=== PATIENT | male | born 1995 | race Caucasian/White ===

== ENCOUNTER 2018-06-15 21:20 | Observation (INO) | payer MEDICAID, OTHER ==
[2018-06-15] MEDS ORDERED: Sodium Chloride 0.9% 2.5 ML Syringe FLUSH PRN (21:28)
[2018-06-15] MEDS ORDERED: Sodium Chloride 0.9% 10 ML Syringe FLUSH PRN (21:28)
[2018-06-15] MEDS ORDERED: Ondansetron 4 MG/2 ML SDV IVPUSH ONE (21:28)
[2018-06-15] MEDS ORDERED: Sodium Chloride 0.9% 1,000 ML IV ONE (21:28)
[2018-06-15] MEDS ORDERED: HYDROmorphone 1 MG/ML Syringe IVPUSH ONE ×2 (21:28→21:59)
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
[2018-06-15] MEDS: Dextrose 5%-0.45% NaCl 1,000 ML IV SCH (22:40)
[2018-06-15] MEDS ORDERED: Morphine 2 MG/ML Syringe IVPUSH SCH (23:45)
[2018-06-16] MEDS ORDERED: Ondansetron 4 MG/2 ML SDV IVPUSH PRN
[2018-06-16] MEDS ORDERED: Morphine 2 MG/ML Syringe IVPUSH PRN (00:02)
[2018-06-16] MEDS ORDERED: Morphine 10 MG/ML Syringe IVPUSH PRN (00:30)
[2018-06-16] MEDS: Morphine 10 MG/ML Syringe IVPUSH PRN ×6 (00:36→20:19)
[2018-06-16] MEDS: Acetaminophen/HYDROcodone 325-5 MG Tab PO PRN ×2 (01:22→08:40)
[2018-06-16] MEDS: Dextrose 5%-0.45% NaCl 1,000 ML IV SCH ×2 (04:43→11:31)
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
--- NOTE | 2018-06-16 12:41 | PCM.PREANE ---
Preanesthetic Assessment - Anesthesia/Transfusion/Family Hx Anesthesia History: No Prior Anesthesia Family History of Anesthesia Reaction: No Transfusion History: No Prior Transfusion(s) Intubation History: Unknown - Review of Systems General: No Symptoms Pulmonary: No Symptoms Cardiovascular: No Symptoms Gastrointestinal: No Symptoms Neurological: No Symptoms Other: Reports: None - Physical Assessment O2 Sat by Pulse Oximetry: 95 Respiratory Rate: 12 Vital Signs: Last Vital Signs Temp 37.2 C 06/16/18 11:52 Pulse 109 H 06/16/18 11:52 Resp 12 06/16/18 11:52 BP 134/75 06/16/18 11:52 Pulse Ox 95 06/16/18 11:52 Height: 1.78 m Weight: 135.5 kg ASA Class: 2 Mental Status: Alert & Oriented x3 Airway Class: Mallampati = 2 Dentition: Reports: Normal Dentition Thyro-Mental Finger Breadths: 3 Mouth Opening Finger Breadths: 2 ROM/Head Extension: Full Lungs: Clear to Auscultation, Normal Respiratory Effort Cardiovascular: Regular Rate, Regular Rhythm - Allergies Allergies/Adverse Reactions: Allergies Allergy/AdvReac Type Severity Reaction Status Date / Time No Known Allergies Allergy Verified 06/15/18 21:30 - Blood Blood Available: No - Anesthesia Plan Pre-Op Medication Ordered: None - Acknowledgements Anesthesia Type Planned: General Anesthesia Pt an Appropriate Candidate for the Planned Anesthesia: Yes Alternatives and Risks of Anesthesia Discussed w Pt/Guardian: Yes Pt/Guardian Understands and Agrees with Anesthesia Plan: Yes PreAnesthesia Questionnaire - Past Health History Medical/Surgical History: Denies Medical/Surgical History HEENT History: Reports: None Cardiovascular History: Reports: None Respiratory History: Reports: None Gastrointestinal History: Reports: None Genitourinary History: Reports: None Musculoskeletal History: Reports: Other (See Below) (ankle fx) Neurological History: Reports: None Psychiatric History: Reports: None Endocrine/Metabolic History: Reports: Obesity/BMI 30+ Dermatologic History: Reports: None - Infectious Disease History Infectious Disease History: Reports: None - Past Surgical History HEENT Surgical History: Reports: Tonsillectomy Male Surgical History: Reports: None - SUBSTANCE USE Smoking Status *Q: Never Smoker Second Hand Smoke Exposure: No Recreational Drug Use History: No - HOME MEDS Home Medications: Home Meds . [No Known Home Meds] 06/15/18 [History] - CURRENT (IN HOUSE) MEDS Current Meds: Current Medications Hydrocodone Bitart/Acetaminophen ([place] 325-5 Mg) 2 tab PO Q4H PRN PRN Reason: Pain Last Admin: 06/16/18 08:40 Dose: 2 tab Dextrose/Sodium Chloride (Dextrose 5%-1/2 Ns) 1,000 mls @ 150 mls/hr IV ASDIRECTED VIVIANA Last Admin: 06/16/18 11:31 Dose: 150 mls/hr Cefazolin Sodium/Dextrose 2 gm (/ Premix) 50 mls @ 100 mls/hr IV ONETIME ONE Stop: 06/16/18 15:29 Morphine Sulfate (Morphine) 1 - 5 mg IVPUSH Q2H PRN PRN Reason: Pain Last Admin: 06/16/18 07:46 Dose: 2 mg Ondansetron HCl (Zofran) 4 mg IVPUSH Q6H PRN PRN Reason: Nausea/Vomiting Sodium Chloride (Saline Flush) 10 ml FLUSH ASDIRECTED PRN PRN Reason: Keep Vein Open Last Admin: 06/15/18 21:41 Dose: 10 ml Sodium Chloride (Saline Flush) 2.5 ml FLUSH ASDIRECTED PRN PRN Reason: Keep Vein Open Last Admin: 06/15/18 21:41 Dose: 2.5 ml Discontinued Medications Hydromorphone HCl (Dilaudid) 1 mg IVPUSH ONETIME ONE Stop: 06/15/18 21:29 Last Admin: 06/15/18 21:40 Dose: 1 mg Hydromorphone HCl (Dilaudid) 1 mg IVPUSH ONETIME ONE Stop: 06/15/18 22:00 Last Admin: 06/15/18 22:15 Dose: 1 mg Sodium Chloride (Normal Saline) 1,000 mls @ 999 mls/hr IV STAT ONE Stop: 06/15/18 22:28 Last Admin: 06/15/18 21:41 Dose: 999 mls/hr Morphine Sulfate (Morphine) 1 mg IVPUSH Q2H [facility] Last Admin: 06/16/18 01:17 Dose: Not Given Morphine Sulfate (Morphine) 1 mg IVPUSH Q2H PRN PRN Reason: Pain Morphine Sulfate (Morphine) 1 - 5 mg IVPUSH Q2H PRN PRN Reason: Pain Ondansetron HCl (Zofran) 4 mg IVPUSH ONETIME ONE Stop: 06/15/18 21:29 Last Admin: 06/15/18 21:41 Dose: 4 mg
--- NOTE | 2018-06-16 13:30 | CR ---
EXAM DATE: 06/16/18 PATIENT'S AGE: 22 Patient: MALCOLM DOS SANTOS Facility: [place], [place] Site . Site : 1995 Study: XRay Extremity Left Tib/Fib [id number]/13/2018 9:47:08 PM Ordering Physician: Donna Meier Final Report: INDICATION: Increasing pain. TECHNIQUE: Two views of tibia and fibula COMPARISON: None FINDINGS: Bones: Displaced fractures involving me grade 2 distal tibia and fibula. Joint spaces: Unremarkable. Soft tissues: Unremarkable. IMPRESSION: Displaced fractures involving the mid to distal tibia and fibula. Dictated by Abelardo Patrick MD @ 06/15/2018 9:56:26 PM Dictated by: Abelardo Patrick MD @ 06/15/2018 21:56:32 (Electronic Signature) MTDD
[2018-06-16] MEDS ORDERED: ceFAZolin 2 GM in Premix Bag 1 BAG IV ONE (15:00)
[2018-06-16] MEDS ORDERED: Propofol 200 MG/20 ML SDV ONE (15:14)
[2018-06-16] MEDS ORDERED: fentaNYL 250 MCG/5 ML SDV ONE (15:14)
[2018-06-16] MEDS ORDERED: Midazolam 1 MG/ML 2 ML SDV ONE (15:14)
[2018-06-16] MEDS ORDERED: Bupivacaine 0.5% 10 ML SDV ONE (15:38)
[2018-06-16] MEDS ORDERED: Lidocaine 2% 5 ML SDV ONE (16:15)
[2018-06-16] MEDS ORDERED: Ketorolac 30 MG/ML SDV ONE (16:15)
[2018-06-16] MEDS ORDERED: Ondansetron 4 MG/2 ML SDV ONE (16:15)
[2018-06-16] MEDS ORDERED: Glycopyrrolate 0.2 MG/ML SDV ONE (16:15)
[2018-06-16] MEDS ORDERED: Rocuronium 10 MG/ML 10 ML Syringe ONE (16:15)
[2018-06-16] MEDS ORDERED: Sodium Chloride 0.9% 20 ML ONE (17:16)
[2018-06-16] MEDS ORDERED: ceFAZolin 1 GM Vial ONE (17:16)
--- NOTE | 2018-06-16 18:42 | PCM.OPNOTE ---
- General Post-Op/Procedure Note Date of Surgery/Procedure: 06/16/18 Operative Procedure(s): closed reduction intramedullary nailing left tibia Findings: tibia/fibula fracture Pre Op Diagnosis: left tibia and fibula shaft fx Post-Op Diagnosis: same Anesthesia Technique: General LMA Primary Surgeon: Surjit Clifton Mai Geophysical Manager: Gifty Lopez EBEric in mLs: 20 Complications: none Condition: Stable Free Text/Narrative:: Intake & Output 06/16/18 06/16/18 06/16/18 06:59 14:59 22:59 Intake Total 0919 745 Output Total 400 6205 Balance 7954 -854
--- NOTE | 2018-06-16 19:08 | PCM.POSTAN ---
POST ANESTHESIA ASSESSMENT - MENTAL STATUS Mental Status: Alert - RESPIRATORY Respiratory Status: Respiratory Rate WNL - CARDIOVASCULAR CV Status: Pulse Rate WNL - GASTROINTESTINAL GI Status: No Symptoms - POST OP HYDRATION Hydration Status: Adequate & Stable
[2018-06-16] MEDS ORDERED: fentaNYL 100 MCG/2 ML SDV IVPUSH PRN (19:09)
--- NOTE | 2018-06-16 19:33 | PCM48HPAN ---
Post Anesthesia Note - EVALUATION WITHIN 48HRS OF ANESTHETIC Vital Signs in Normal Range: Yes Patient Participated in Evaluation: Yes Respiratory Function Stable: Yes Airway Patent: Yes Cardiovascular Function Stable: Yes Hydration Status Stable: Yes Pain Control Satisfactory: Yes Nausea and Vomiting Control Satisfactory: Yes Mental Status Recovered: Yes Resp Rate: 13
[2018-06-16 20:39] LABS: CHLORIDE,CL 103 mmol/L (98-107); SODIUM,NA 137 mmol/L (136-148)
[2018-06-16] MEDS: Ketorolac 30 MG/ML SDV IVPUSH PRN (20:48)
[2018-06-16] MEDS: Docusate Sodium 100 MG Cap PO SCH (20:52)
[2018-06-16] MEDS: ceFAZolin 2 GM in Premix Bag 1 BAG IV SCH (23:56)
[2018-06-16] MEDS: Acetaminophen/HYDROcodone 325-10 MG Tab PO PRN (23:58)
[2018-06-17] MEDS: Dextrose 5%-0.45% NaCl 1,000 ML IV SCH ×2 (00:43→09:08)
--- NOTE | 2018-06-17 03:20 | OR ---
SURGEON: Surjit Ponce MD DATE OF PROCEDURE: 06/16/2018 [employer] SUPERVISOR: Gifty Lopez PA-C. PREOPERATIVE DIAGNOSIS: Left distal third shaft tibia/fibular fracture. POSTOPERATIVE DIAGNOSIS: Left distal third shaft tibia/fibular fracture. OPERATION PERFORMED: Closed reduction, intramedullary nailing, left tibia. ANESTHESIA: General with LMA, attempted spinal. ESTIMATED BLOOD LOSS: 20 mL. SPECIMENS: None. IMPLANTS: [place] 9 x 345 mm tibial nail, one proximal, 6.5 screw x distal 6.5 screws. TOURNIQUET: None. Gifty Lopez intermittently on case with reduction, reaming, and closing. INDICATIONS: The patient was seen in preoperative area. Operative extremity was marked of the patient. He was transferred to the operating room and placed supine on the operating room table. After attempted spinal, general anesthesia was induced. An LMA was placed. He received preop antibiotics with Ancef. Left leg was prepped and draped in sterile fashion using alcohol followed by ChloraPrep. A formal time-out was taken, identifying the correct patient, procedure, and extremity. Prior to draping, it was noted that he had some purulence coming out of his Olvera. A 3 cm incision started on the distal third of the patella, going distally was made. Dissection carried down to subcu tissues. The paratenon was opened and the patellar tendon was split longitudinally in its mid substance and then an awl was used to enter at the junction of the tibial plateau in the anterior cortex of the tibia and it was introduced. A guidewire was placed down after holding the fracture reduced 1 cm above the joint line. This measured about 360 and therefore 345 mm nail was decided upon. The opening reamer was used and then it was reamed, started at 9 which had immediate chatter in the mid aspect of the tibia up to 10.5, and therefore a 9 x 345 nail was opened and this was then impacted while holding the fracture reduced. There was noted to be complete anatomic reduction given the transverse nature of the fracture as well as over the fibula. It was compressed with the nail with pressing distally. Proximal screw was placed, from anterior medial to posterior lateral bicortically and then the outrigger was removed and the leg was straightened. Perfect circles lateral was performed, and from medial to lateral, two stab incisions were made and drill was placed across the two cortices and the nail and 2 screws were placed. AP and lateral views of the knee fracture and ankle confirmed anatomic reduction and excellent placement of the screws. The wounds were then thoroughly irrigated particularly up at the knee, getting all bony debris out. The paratenon was closed with #1 Vicryl, subcutaneous tissue with 3- 0 Vicryl. The stab incisions were closed with 3-0 Vicryl and uriel were used on the skin. Xeroform and sterile dressing applied. Patient was placed into a walking boot. He was extubated in the operating room and transferred to the recovery room in stable condition. Sponge and needle counts were correct at the end of the case. There were no complications. He will be allowed weightbearing as tolerated. Medicine will be consulted for the purulence coming from his penis. TAMIKO ALTMAIRANO /[id number]
[2018-06-17] MEDS: Ketorolac 30 MG/ML SDV IVPUSH PRN (03:22)
[2018-06-17] MEDS ORDERED: Sodium Chloride 0.9% 2.5 ML Syringe FLUSH PRN (08:32)
[2018-06-17] MEDS ORDERED: Sodium Chloride 0.9% 10 ML Syringe FLUSH PRN (08:32)
--- NOTE | 2018-06-17 08:39 | PCM.SN ---
- Free Text/Narrative Note: S: pain is well controlled. has not been out of bed yet. he denies pain in other joints or elsewhere. no numbness of tingling in leg, no severe pain at rest O: afebrile now 100.8 at night, vital signs stable Left leg: dressing clean/dry/intact, normal sensation in s/s/dp/sp/t, active AT/ EHL/GSC <2 sec cap refill, no pain to passive stretch, compartments soft A/P: POD #1 IM nailing left tibia - full weightbearing in cam boot, may be out of it when resting - purulent penile discharge, IM to see today - crutches, pain control, currently doing well - home later today.
[2018-06-17] MEDS: ceFAZolin 2 GM in Premix Bag 1 BAG IV SCH (09:06)
[2018-06-17] MEDS: Docusate Sodium 100 MG Cap PO SCH (09:07)
[2018-06-17] MEDS ORDERED: cefTRIAXone 250 MG Vial IVPUSH ONE (10:41)
[2018-06-17] MEDS ORDERED: Azithromycin 250 MG Tab PO STA (10:43)
[2018-06-17] MEDS: Acetaminophen/HYDROcodone 325-10 MG Tab PO PRN (11:27)
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
--- NOTE | 2018-06-19 12:52 | CR ---
EXAMINATION: Left tibia and fibula HISTORY: IM nailing COMPARISON: 06/15/2018 TECHNIQUE: 7 views provided FINDINGS/IMPRESSION: Operative control films demonstrate placement of an intramedullary evelyn traversin g a mid to distal tibial diaphysis fracture. There is an adjacent fibular fracture noted.
== END 2018-06-17 13:30 | disposition home or self-care (01) ==
LOC: MW.ED 21:20 → MW.MS 22:49 → INTOOBSV 06-16 07:17 → OBSVTOIN 06-16 07:17
PROVIDERS: ADMIT Orthopaedic Surgery; ATTEND Orthopaedic Surgery
DX: S82.222A Displaced transverse fracture of shaft of left tibia, initial encounter for closed fracture (principal); S82.402A Unspecified fracture of shaft of left fibula, initial encounter for closed fracture; V20.4XXA Motorcycle driver injured in collision with pedestrian or animal in traffic accident, initial encounter; R36.9 Urethral discharge, unspecified; E66.9 Obesity, unspecified; Z68.34 Body mass index [BMI] 34.0-34.9, adult
CPT/HCPCS: 27758; 36415; 51702; 72170; 73590; 76000; 80053; 81001; 85025; 87070; 87086; 96361; 96365; 96375; 97161; 99285; A9270; J0690; J0696; J1170; J1885; J2250; J2270; J2405; J2704; J3010; J3490; J7040; J7042; 99284

== ENCOUNTER 2019-11-28 00:27 | Emergency (ER) | payer OTHER ==
[2019-11-28] MEDS ORDERED: Morphine 10 MG/ML Syringe IVPUSH ONE (01:04)
[2019-11-28] MEDS ORDERED: Ketorolac 30 MG/ML SDV IVPUSH ONE (01:22)
[2019-11-28 01:34] LABS: BLOOD UREA NITROGEN,BUN 6 mg/dL (7.0-18.0); CARBON DIOXIDE,CO2 26.5 mmol/L (21.0-32.0); CHLORIDE,CL 105 mmol/L (98-107); GLUCOSE RANDOM 103 mg/dL (74-106); POTASSIUM,K 3.9 mmol/L (3.5-5.1); SODIUM,NA 143 mmol/L (136-148)
--- NOTE | 2019-11-28 02:00 | CR ---
Indication: Trauma, swelling Technique: Two views of the right ankle Comparison: None Findings/Impression: There is an oblique displaced fracture the distal fibula. No fracture is identified in the tibia. There is medial subluxation of the distal tibia resulting in significant widening of the medial tibiotalar space. The talar dome appears intact. There is surrounding soft tissue edema. Dictated by Desiree Ward MD @ Nov 28 2019 1:57AM Signed by Dr. Desiree Ward @ Nov 28 2019 1:57AM
[2019-11-28] MEDS ORDERED: Propofol 200 MG/20 ML SDV ONE ×2 (02:13→02:39)
[2019-11-28] MEDS ORDERED: Ketamine 500 mg/10 ML MDV ONE (02:13)
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
--- NOTE | 2019-11-28 07:37 | PCM.PREANE ---
Preanesthetic Assessment - Anesthesia/Transfusion/Family Hx Anesthesia History: Prior Anesthesia Without Reaction Family History of Anesthesia Reaction: No Transfusion History: No Prior Transfusion(s) Intubation History: Unknown - Review of Systems General: No Symptoms Pulmonary: Cough Cardiovascular: No Symptoms Gastrointestinal: Other (obesity) Neurological: Other (acute ETOH intoxication) Other: Reports: None - Physical Assessment NPO Status Date: 11/28/19 NPO Status Time: 00:10 (alcohol until MN, food at 1200) Vital Signs: Last Vital Signs Temp 36.7 C 11/28/19 04:46 Pulse 110 H 11/28/19 04:46 Resp 19 11/28/19 04:46 BP 140/64 11/28/19 04:46 Pulse Ox 98 11/28/19 04:46 Height: 5 ft 10 in Weight: 108.862 kg ASA Class: 2E Mental Status: Alert & Oriented x3 Airway Class: Mallampati = 2 Dentition: Reports: Normal Dentition Thyro-Mental Finger Breadths: 3 ROM/Head Extension: Full Lungs: Clear to Auscultation, Normal Respiratory Effort Cardiovascular: Regular Rate, Regular Rhythm - Lab Values: Laboratory Last Values WBC 8.51 K/uL (4.0-11.0) 11/28/19 01:00 RBC 5.79 M/uL (4.50-5.90) 11/28/19 01:00 Hgb 16.8 g/dL (13.0-17.0) 11/28/19 01:00 Hct 47.7 % (38.0-50.0) 11/28/19 01:00 MCV 82.4 fL (80.0-98.0) 11/28/19 01:00 MCH 29.0 pg (27.0-32.0) 11/28/19 01:00 MCHC 35.2 g/dL (31.0-37.0) 11/28/19 01:00 RDW Std Deviation 44.0 fl (28.0-62.0) 11/28/19 01:00 RDW Coeff of Isidro 15 % (11.0-15.0) 11/28/19 01:00 Plt Count 256 K/uL (150-400) 11/28/19 01:00 MPV 9.70 fL (7.40-12.00) 11/28/19 01:00 Neut % (Auto) 68.7 % (48.0-80.0) 11/28/19 01:00 Lymph % (Auto) 17.2 % (16.0-40.0) 11/28/19 01:00 [place] % (Auto) 9.9 % (0.0-15.0) 11/28/19 01:00 Eos % (Auto) 3.8 % (0.0-7.0) 11/28/19 01:00 Baso % (Auto) 0.4 % (0.0-1.5) 11/28/19 01:00 Neut # (Auto) 5.9 K/uL (1.4-5.7) H 11/28/19 01:00 Lymph # (Auto) 1.5 K/uL (0.6-2.4) 11/28/19 01:00 [place] # (Auto) 0.8 K/uL (0.0-0.8) 11/28/19 01:00 Eos # (Auto) 0.3 K/uL (0.0-0.7) 11/28/19 01:00 Baso # (Auto) 0.0 K/uL (0.0-0.1) 11/28/19 01:00 Sodium 143 mmol/L (136-148) 11/28/19 01:00 Potassium 3.9 mmol/L (3.5-5.1) 11/28/19 01:00 Chloride 105 mmol/L (98-107) 11/28/19 01:00 Carbon Dioxide 26.5 mmol/L (21.0-32.0) 11/28/19 01:00 BUN 6 mg/dL (7.0-18.0) L 11/28/19 01:00 Creatinine 0.9 mg/dL (0.8-1.3) 11/28/19 01:00 Est Cr Clr Drug Dosing 130.68 mL/min 11/28/19 01:00 Estimated GFR (MDRD) > 60.0 ml/min 11/28/19 01:00 Glucose 103 mg/dL (74-106) 11/28/19 01:00 Calcium 8.3 mg/dL (8.5-10.1) L 11/28/19 01:00 Total Bilirubin 0.7 mg/dL (0.2-1.0) 11/28/19 01:00 AST 25 IU/L (15-37) 11/28/19 01:00 ALT 43 IU/L (14-63) 11/28/19 01:00 Alkaline Phosphatase 83 U/L (46-116) 11/28/19 01:00 Total Protein 7.7 g/dL (6.4-8.2) 11/28/19 01:00 Albumin 4.0 g/dL (3.4-5.0) 11/28/19 01:00 Globulin 3.7 g/dL (2.6-4.0) 11/28/19 01:00 Albumin/Globulin Ratio 1.1 (0.9-1.6) 11/28/19 01:00 Blood Type A POSITIVE 11/28/19 01:16 Antibody Screen NEGATIVE 11/28/19 01:16 - Allergies Allergies/Adverse Reactions: Allergies Allergy/AdvReac Type Severity Reaction Status Date / Time cat Allergy Hives Uncoded 11/28/19 00:41 dog Allergy Hives Uncoded 11/28/19 00:41 - Acknowledgements Anesthesia Type Planned: MAC Pt an Appropriate Candidate for the Planned Anesthesia: Yes Alternatives and Risks of Anesthesia Discussed w Pt/Guardian: Yes Pt/Guardian Understands and Agrees with Anesthesia Plan: Yes Additional Comments: Discussed MAC vs general anesthesia. Risks and benefits discussed. PreAnesthesia Questionnaire - Past Health History Medical/Surgical History: Denies Medical/Surgical History HEENT History: Reports: None Cardiovascular History: Reports: None Respiratory History: Reports: None Gastrointestinal History: Reports: None Genitourinary History: Reports: None Musculoskeletal History: Reports: Other (See Below) Other Musculoskeletal History: Left foot injury Neurological History: Reports: None Psychiatric History: Reports: None Endocrine/Metabolic History: Reports: None, Obesity/BMI 30+ Hematologic History: Reports: None Immunologic History: Reports: None Oncologic (Cancer) History: Reports: None Dermatologic History: Reports: None - Infectious Disease History Infectious Disease History: Reports: None - Past Surgical History Head Surgeries/Procedures: Reports: None HEENT Surgical History: Reports: Tonsillectomy Male Surgical History: Reports: None Musculoskeletal Surgical History: Reports: Other (See Below) Other Musculoskeletal Surgeries/Procedures:: foot surgery - SUBSTANCE USE Smoking Status *Q: Never Smoker Recreational Drug Use History: No - HOME MEDS Home Medications: Home Meds oxyCODONE HCl/Acetaminophen [Percocet 10-325 mg Tablet] 1 each PO Q8HR PRN #12 tablet 11/28/19 [Rx] - CURRENT (IN HOUSE) MEDS Current Meds: Current Medications Discontinued Medications Ketamine HCl (Ketalar) Confirm Administered Dose 500 mg .ROUTE .STK-MED ONE Stop: 11/28/19 02:14 Ketorolac Tromethamine (Toradol) 30 mg IVPUSH ONETIME ONE Stop: 11/28/19 01:23 Last Admin: 11/28/19 01:25 Dose: 30 mg Lidocaine HCl (Xylocaine-Mpf 1%) Confirm Administered Dose 5 ml .ROUTE .STK-MED ONE Stop: 11/28/19 02:14 Morphine Sulfate (Morphine) 8 mg IVPUSH ONETIME ONE Stop: 11/28/19 01:05 Propofol (Diprivan 20 Ml) Confirm Administered Dose 200 mg .ROUTE .STK-MED ONE Stop: 11/28/19 02:14 Propofol (Diprivan 20 Ml) Confirm Administered Dose 200 mg .ROUTE .STK-MED ONE Stop: 11/28/19 02:40
--- NOTE | 2019-11-28 07:38 | PCM.POSTAN ---
POST ANESTHESIA ASSESSMENT - MENTAL STATUS Mental Status: Alert, Oriented - VITAL SIGNS Vital Signs: Last Vital Signs Temp 36.7 C 11/28/19 04:46 Pulse 110 H 11/28/19 04:46 Resp 19 11/28/19 04:46 BP 140/64 11/28/19 04:46 Pulse Ox 98 11/28/19 04:46 - RESPIRATORY Respiratory Status: Respiratory Rate WNL, Airway Patent, O2 Saturation Stable, Supplemental Oxygen - CARDIOVASCULAR CV Status: Pulse Rate WNL, Blood Pressure Stable - GASTROINTESTINAL GI Status: No Symptoms - PAIN Pain Score: 3 - POST OP HYDRATION Hydration Status: Adequate & Stable
--- NOTE | 2019-11-28 07:38 | PCM48HPAN ---
Post Anesthesia Note - EVALUATION WITHIN 48HRS OF ANESTHETIC Vital Signs in Normal Range: Yes Patient Participated in Evaluation: Yes Respiratory Function Stable: Yes Airway Patent: Yes Cardiovascular Function Stable: Yes Hydration Status Stable: Yes Pain Control Satisfactory: Yes Nausea and Vomiting Control Satisfactory: Yes Mental Status Recovered: Yes Vital Signs: Last Vital Signs Temp 36.7 C 11/28/19 04:46 Pulse 110 H 11/28/19 04:46 Resp 19 11/28/19 04:46 BP 140/64 11/28/19 04:46 Pulse Ox 98 11/28/19 04:46
--- NOTE | 2019-11-28 09:49 | CR ---
EXAM DATE: 11/28/19 PATIENT'S AGE: 24 Patient: MALCOLM DOS SANTOS Facility: [facility] Site : 1995 Study: XRay-Extremity Right -11/28/2019 3:07:51 AM Ordering Physician: Rafa Rodríguez Final Report: Indication: Fracture, post reduction Technique: Four views of the right ankle, images time stamped at 2:34 a.m., 2:35 a.m., 2: 41 a.m., and 2:47 a.m. Comparison: Two-view right ankle radiographs 11/28/2019 at 1:35 a.m. Findings/Impression: Post reduction, there is slightly improved alignment of distal fibular fracture with residual dislocation. There is persistent but slightly improved widening of the medial joint tibiotalar space. Small fracture fragment is noted in the medial joint space, of uncertain donor site. Dictated by Desiree Ward MD @ Nov 28 2019 3:13AM Signed by: Desiree Ward MD @11/28/2019 3:31:57 AM (Electronic Signature) Report Signed by Proxy. HELEN
== END 2019-11-28 04:47 | disposition home or self-care (01) ==
LOC: MW.ED 00:27
DX: S93.04XA Dislocation of right ankle joint, initial encounter (principal); Z91.09 Other allergy status, other than to drugs and biological substances; E66.9 Obesity, unspecified; Z68.34 Body mass index [BMI] 34.0-34.9, adult; Y04.0XXA Assault by unarmed brawl or fight, initial encounter
CPT/HCPCS: 27840; 36415; 73600; 73610; 80053; 85025; 86850; 86900; 86901; 93005; 96374; 99152; 99153; 99284; J1885; J2001; J2704; 01462; 99283; J2270

== ENCOUNTER 2019-12-05 07:02 | Day surgery (SDC) | payer OTHER ==
[~2019-12-05 07:02] MED LIST: Lactated Ringers 1,000 ML IV SCH
--- NOTE | 2019-12-05 07:46 | PCM.PREANE ---
Preanesthetic Assessment - Anesthesia/Transfusion/Family Hx Anesthesia History: Prior Anesthesia Without Reaction Family History of Anesthesia Reaction: No Transfusion History: No Prior Transfusion(s) Intubation History: Unknown - Review of Systems General: No Symptoms Pulmonary: No Symptoms Cardiovascular: No Symptoms Gastrointestinal: No Symptoms Neurological: No Symptoms Other: Reports: None - Physical Assessment NPO Status Date: 12/04/19 Height: 5 ft 10 in Weight: 108.862 kg ASA Class: 1 Mental Status: Alert & Oriented x3 Airway Class: Mallampati = 2 Dentition: Reports: Normal Dentition ROM/Head Extension: Full Lungs: Clear to Auscultation, Normal Respiratory Effort Cardiovascular: Regular Rate, Regular Rhythm - Allergies Allergies/Adverse Reactions: Allergies Allergy/AdvReac Type Severity Reaction Status Date / Time cat Allergy Hives Uncoded 11/30/19 13:03 dog Allergy Hives Uncoded 11/30/19 13:03 - Blood Blood Available: No - Anesthesia Plan Pre-Op Medication Ordered: None - Acknowledgements Anesthesia Type Planned: General Anesthesia Pt an Appropriate Candidate for the Planned Anesthesia: Yes Alternatives and Risks of Anesthesia Discussed w Pt/Guardian: Yes Pt/Guardian Understands and Agrees with Anesthesia Plan: Yes Additional Comments: PMH: none PLAN: ga/lma PreAnesthesia Questionnaire - Past Health History Medical/Surgical History: Denies Medical/Surgical History HEENT History: Reports: None Cardiovascular History: Reports: None Respiratory History: Reports: Other (See Below) Other Respiratory History: hx of respitory infection - has prescribed inhaler Gastrointestinal History: Reports: None Genitourinary History: Reports: None Musculoskeletal History: Reports: Fracture, Other (See Below) Other Musculoskeletal History: hx fx left leg Neurological History: Reports: None Psychiatric History: Reports: None Endocrine/Metabolic History: Reports: Obesity/BMI 30+ Hematologic History: Reports: None Immunologic History: Reports: None Oncologic (Cancer) History: Reports: None Dermatologic History: Reports: None - Infectious Disease History Infectious Disease History: Reports: None - Past Surgical History Head Surgeries/Procedures: Reports: None HEENT Surgical History: Reports: None, Tonsillectomy Cardiovascular Surgical History: Reports: None Respiratory Surgical History: Reports: None GI Surgical History: Reports: None Male Surgical History: Reports: None Endocrine Surgical History: Reports: None Neurological Surgical History: Reports: None Musculoskeletal Surgical History: Reports: ORIF, Other (See Below) Other Musculoskeletal Surgeries/Procedures:: ORIF left leg fx Oncologic Surgical History: Reports: None Dermatological Surgical History: Reports: None - SUBSTANCE USE Smoking Status *Q: Never Smoker - HOME MEDS Home Medications: Home Meds oxyCODONE HCl/Acetaminophen [Percocet 10-325 mg Tablet] 1 each PO Q8HR PRN #12 tablet 11/28/19 [Rx] Albuterol Sulfate [Proair Hfa] 1 - 2 puff INH ASDIRECTED PRN 11/30/19 [History] Fluticasone/Vilanterol [Breo Ellipta 100-25 MCG Inhalation Kit] 1 puff INH ASDIRECTED PRN 11/30/19 [History] - CURRENT (IN HOUSE) MEDS Current Meds: Current Medications Cefazolin Sodium/Dextrose 2 gm (/ Premix) 50 mls @ 100 mls/hr IV ONCALL VIVIANA Lactated Ringer's (Ringers, Lactated) 1,000 mls @ 100 mls/hr IV ASDIRECTED VIVIANA
[2019-12-05] MEDS ORDERED: ceFAZolin 2 GM in Premix Bag 1 BAG IV SCH (08:00)
[2019-12-05] MEDS ORDERED: Bupivacaine 0.25% 10 ML SDV ONE (08:39)
[2019-12-05] MEDS ORDERED: ceFAZolin 1 GM Vial ONE ×2 (08:39→09:11)
[2019-12-05] MEDS ORDERED: Propofol 200 MG/20 ML SDV ONE (08:58)
[2019-12-05] MEDS ORDERED: Ondansetron 4 MG/2 ML SDV ONE (08:58)
[2019-12-05] MEDS ORDERED: fentaNYL 100 MCG/2 ML SDV ONE ×2 (08:59→09:52)
[2019-12-05] MEDS ORDERED: Midazolam 1 MG/ML 2 ML SDV ONE (08:59)
[2019-12-05] MEDS ORDERED: Ketorolac 30 MG/ML SDV ONE (08:59)
[2019-12-05] MEDS ORDERED: Sodium Chloride 0.9% 20 ML ONE (09:11)
[2019-12-05] MEDS ORDERED: Glycopyrrolate 0.2 MG/ML SDV ONE (09:12)
[2019-12-05] MEDS ORDERED: Dexamethasone 4 MG/ML 5 ML MDV ONE (09:28)
[2019-12-05] MEDS ORDERED: Morphine 10 MG/ML Syringe ONE (09:33)
[2019-12-05] MEDS ORDERED: Morphine 10 MG/ML Syringe IVPUSH ONE (09:47)
--- NOTE | 2019-12-05 10:38 | PCM.OPNOTE ---
- General Post-Op/Procedure Note Date of Surgery/Procedure: 12/05/19 Operative Procedure(s): (1) open reduction and internal fixation of right lateral malleolus ankle fracture. (2) fixation of right ankle syndesmosis with syndesmotic screw Findings: Right displaced lateral malleolus ankle fracture. After fixation of the lateral malleolus, the medial mortise was widened consistent with a syndesmosis injury. Pre Op Diagnosis: Right displaced lateral malleolus ankle fracture Post-Op Diagnosis: (1) right displaced lateral malleolus ankle fracture. (2) right ankle syndesmosis disruption Anesthesia Technique: General LMA Primary Surgeon: Davon Olivas Fur Blower Operator: Donna Schumacher Fur Blower Operator Was Necessary: Positioning and maintenance of reduction. EBL in mLs: 10 Complications: None Free Text/Narrative:: Patient had a right ankle fracture/dislocation which was initially reduced in the emergency room. I saw him in follow-up in clinic. Given the unstable nature of the fracture pattern, I recommended open reduction and fixation. If there was a syndesmosis injury, I recommended internal fixation of that also. I discussed the risks and benefits of surgery. Patient consented to proceed with surgery. Patient was taken to the operating room. After adequate general anesthesia, he remained in the supine position. Tourniquet was placed around the right proximal thigh. Right lower extremity is prepped and draped in usual sterile manner. The leg elevated and the tourniquet inflated. Longitudinal incision was made along the posterolateral border of the distal fibula. Skin was incised with a scalpel. Subcutaneous tissue was incised with electrocautery. There was taken to protect the superficial peroneal nerve. The fracture was identified and periosteum elevated to visualize the fracture. Hematoma was removed from the fracture site. The fracture was reduced anatomically with a clamp. A 5 hole one third tubular plate was then applied. Bicortical screws were placed in the second and third holes reducing the plate to the bone. A bicortical screw was then placed in the most proximal hole. With the fracture reduced anatomically, 2 lag screws were placed obliquely across the fracture site through the plate in the fourth and fifth holes. C-arm evaluated the reduction and there was noted to be widening of the mortise medially and at the syndesmosis. The reduction could be improved with manual stress. A screw was removed from the fourth hole and a syndesmotic screw was then placed through the hole with a lag technique. The screw was tightened with the ankle dorsiflexed maximally. C-arm then confirmed anatomic reduction with reconstruction of the mortise on AP and lateral views. Wounds were irrigated. Fascia was closed with interrupted [id number] #1 Vicryl sutures. Subcutaneous tissue was closed with interrupted 2-0 Vicryl suture. Skin was closed with interrupted nylon suture. Sterile dressing was applied and patient was then placed in a short leg splint. He was accompanied to the recovery room in stable condition. Pain management: Ibuprofen and Vicodin Venous thromboembolism prophylaxis: Aspirin EC 325 mg daily for 3 months. Post-operative antibiotics not indicated for outpatient procedure. Restrictions: Patient is strictly nonweightbearing on his right lower extremity for 6 weeks. He will be in a short leg splint for 2 weeks and then switch back to his fracture boot when seen in clinic at 2 weeks. He may begin passive and active range of motion of his ankle at 2 weeks, but again be strictly nonweightbearing. At 6 weeks, he may be weightbearing as tolerated in the boot until 3 months. At 3 months, the boot may be discontinued. He is released to full activities as tolerated without restrictions at 3 months.
[2019-12-05] MEDS ORDERED: oxyCODONE 5 MG Tab PO ONE (11:27)
--- NOTE | 2019-12-05 11:33 | PCM.POSTAN ---
POST ANESTHESIA ASSESSMENT - MENTAL STATUS Mental Status: Alert, Oriented - VITAL SIGNS Vital Signs: Last Vital Signs Temp 97.3 F 12/05/19 10:46 Pulse 88 12/05/19 11:16 Resp 16 12/05/19 11:16 BP 134/63 12/05/19 11:16 Pulse Ox 93 L 12/05/19 11:16 - RESPIRATORY Respiratory Status: Respiratory Rate WNL, Airway Patent, O2 Saturation Stable - CARDIOVASCULAR CV Status: Pulse Rate WNL, Blood Pressure Stable - GASTROINTESTINAL GI Status: No Symptoms - POST OP HYDRATION Hydration Status: Adequate & Stable
--- NOTE | 2019-12-05 13:50 | PCM48HPAN ---
Post Anesthesia Note - EVALUATION WITHIN 48HRS OF ANESTHETIC Vital Signs in Normal Range: Yes Patient Participated in Evaluation: Yes Respiratory Function Stable: Yes Airway Patent: Yes Cardiovascular Function Stable: Yes Hydration Status Stable: Yes Pain Control Satisfactory: Yes Nausea and Vomiting Control Satisfactory: Yes Mental Status Recovered: Yes Vital Signs: Last Vital Signs Temp 97.3 F 12/05/19 10:46 Pulse 95 12/05/19 13:00 Resp 15 12/05/19 13:00 BP 135/82 12/05/19 13:00 Pulse Ox 97 12/05/19 13:00
--- NOTE | 2019-12-06 12:55 | CR ---
Right ankle: 2 fluoroscopic spot views of the right ankle were obtained utilizing C-arm device. Comparison: No previous study. Plate and screws are noted within the distal fibula. Single screw affixes the distal fibula to the tibia. Ankle mortise is symmetric. Bony structures are anatomic in alignment. Fluoroscopy time given as 9.5 seconds. Impression: 1. Procedural study as noted above. Diagnostic code #2 This report was dictated in [place] Standard Time
== END 2019-12-05 15:25 | disposition home or self-care (01) ==
LOC: MW.SDS 07:02
PROVIDERS: ATTEND Orthopaedic Surgery
DX: S82.61XA Displaced fracture of lateral malleolus of right fibula, initial encounter for closed fracture (principal); S93.431A Sprain of tibiofibular ligament of right ankle, initial encounter; Y09 Assault by unspecified means; Z91.09 Other allergy status, other than to drugs and biological substances
CPT/HCPCS: 27792; 27829; 76000; A9270; C1713; J0131; J0690; J1100; J1885; J2250; J2270; J2405; J2704; J3010; J3490; J7120

== ENCOUNTER 2020-12-18 21:41 | Emergency (ER) | payer SELFPAY ==
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
[2020-12-19 00:44] LABS: ACETAMINOPHEN <2.0 ug/mL; BLOOD UREA NITROGEN,BUN 6 mg/dL (7.0-18.0); CARBON DIOXIDE,CO2 23.6 mmol/L (21.0-32.0); CHLORIDE,CL 103 mmol/L (98-107); GLUCOSE RANDOM 108 mg/dL (74-106); POTASSIUM,K 3.5 mmol/L (3.5-5.1); SODIUM,NA 140 mmol/L (136-148)
[2020-12-19] MEDS ORDERED: Albuterol/Ipratropium 3.0-0.5 MG/3 ML Neb Soln NEB ONE (07:52)
== END 2020-12-19 09:13 | disposition home or self-care (01) ==
LOC: MW.ED 21:41
DX: F43.21 Adjustment disorder with depressed mood (principal); F10.129 Alcohol abuse with intoxication, unspecified; R00.0 Tachycardia, unspecified; J45.909 Unspecified asthma, uncomplicated; E66.9 Obesity, unspecified; Z68.34 Body mass index [BMI] 34.0-34.9, adult; Y90.6 Blood alcohol level of 120-199 mg/100 ml; Z91.048 Other nonmedicinal substance allergy status
CPT/HCPCS: 36415; 80053; 80143; 80179; 80305-QW; 80307; 81003; 83735; 85025; 99285-25; J7620-GY

== ENCOUNTER 2021-06-30 15:12 | Emergency (ER) | payer SELFPAY ==
[2021-06-30] MEDS ORDERED: Ondansetron 4 MG/2 ML SDV IVPUSH ONE (15:47)
[2021-06-30] MEDS ORDERED: Ketorolac 15 MG/ML SDV IVPUSH ONE (15:48)
[2021-06-30] MEDS ORDERED: Dextrose 5%-Lactated Ringers 1,000 ML IV SCH ×2 (16:00→16:45)
--- NOTE | 2021-06-30 18:23 | EDM.PDOC ---
ED HPI GENERAL MEDICAL PROBLEM - General Chief Complaint: Respiratory Problem Stated Complaint: COVID POS Time Seen by Provider: 06/30/21 15:31 - History of Present Illness INITIAL COMMENTS - FREE TEXT/NARRATIVE: CHIEF COMPLAINT(S): Vomiting and diarrhea HISTORY OF PRESENT ILLNESS: This is a 25-year-old man with a past medical history of morbid obesity who comes to the emergency department with a chief complaint of vomiting and diarrhea. The patient states that he has been experiencing fever, fatigue and a dry cough for approximately 1 week. He denies any shortness of breath. He states that he tested positive for Covid and his symptoms have only been getting worse. He states that he comes to the emergency department because he has not been able to tolerate any food and he is having multiple episodes of nonbloody diarrhea a day. He denies any abdominal pain, chest pain, lower extremity edema, recent travel, recent surgery or prior study of DVT or PE. He denies any pain at all whatsoever. REVIEW OF SYSTEMS: Constitutional: Positive for fever and fatigue Eyes: Denies eye pain Ears, Nose, Mouth, & Throat: Denies earache Cardiovascular: Denies chest pain Respiratory: Positive for nonproductive cough denies shortness of breath Gastrointestinal: Positive for vomiting and diarrhea. Denies hematochezia, hematemesis, bilious emesis, melena Genitourinary: Denies hematuria Skin:Denies a rash MSK: Denies joint pain Neurological: Denies blurred vision Psychiatric: Denies depression PAST MEDICAL HISTORY: As per history of present illness and as reviewed below otherwise noncontributory. SURGICAL HISTORY: As per history of present illness and as reviewed below otherwise noncontributory. SOCIAL HISTORY: As per history of present illness and as reviewed below otherwise noncontributory. FAMILY HISTORY: As per history of present illness and as reviewed below otherwise noncontributory. EXAMINATION OF ORGAN SYSTEMS/BODY AREAS: Constitutional: Blood pressure is 148/103, rate 98, respiratory rate 18 with an oxygen saturation of 6% on room air. Temperature 36.9 General: Well-appearing man who is in no acute distress Psychiatric: Appropriate mood and affect. Eyes: No scleral icterus or conjunctival erythema ENMT: Moist mucous membranes. No pharyngeal erythema Cardiovascular: Regular, rate, and rhythm. No gallops, murmurs, or rubs. Bilateral upper extremity pulses symmetric and intact. No peripheral edema. No JVD. Respiratory: Lungs clear to auscultation bilaterally. No wheezes, rales, or rhonchi. Gastrointestinal: Soft, non-tender, non-distended. Normoactive bowel sounds Genitourinary: No suprapubic tenderness Musculoskeletal: Normal range of motion. Skin: No lesions or abrasions. Neurological: Alert, GCS 15 MEDICAL DECISION MAKING AND COURSE IN THE ED WITH INTERPRETATION/REVIEW OF DIAGNOSTIC STUDIES: This is a 25-year-old man with a recent diagnosis of COVID- 19 who comes to the emergency department with typical Covid-like symptoms who has a nontoxic appearance with normal vital signs. At this time we will treat the patient symptomatically with 1 L of D5 LR, Toradol and Zofran. Will reevaluate for p.o. tolerance. I do not believe any other labs or imaging are indicated. After resuscitation the patient was able to tolerate p.o. I did prescribe the patient antinausea medication. He is to return for any new or worsening symptoms. He was amenable discharge and had no further questions. DISPOSITION: The patient was discharged home in stable condition. The patient will follow up with primary care physician in 3 to 5 days CONDITION: Fair PROCEDURES: None FINAL IMPRESSION(S)/DIAGNOSES: 1. Acute vomiting 2. Acute diarrhea 3. Acute COVID-19 Teddy Galindo M.D. - Related Data Allergies Allergy/AdvReac Type Severity Reaction Status Date / Time grass pollen Allergy Other Verified 06/30/21 15:33 cat Allergy Hives Uncoded 06/30/21 15:33 dog Allergy Hives Uncoded 06/30/21 15:33 Home Meds: Home Meds Albuterol Sulfate [Proair Hfa] 1 - 2 puff INH ASDIRECTED PRN 11/30/19 [History] Ondansetron [Zofran ODT] 4 mg PO Q6H PRN #8 tab.dis 06/30/21 [Rx] Past Medical History - Past Health History Medical/Surgical History: Denies Medical/Surgical History HEENT History: Reports: Allergic Rhinitis Cardiovascular History: Reports: None Respiratory History: Reports: Asthma, Other (See Below) Other Respiratory History: hx of respitory infection - has prescribed inhaler Gastrointestinal History: Reports: None Genitourinary History: Reports: None Musculoskeletal History: Reports: Fracture, Other (See Below) Other Musculoskeletal History: hx fx left leg Neurological History: Reports: None Psychiatric History: Reports: None Endocrine/Metabolic History: Reports: Obesity/BMI 30+ Insulin Pump Model and Sales Exec: N/A Hematologic History: Reports: None Immunologic History: Reports: None Oncologic (Cancer) History: Reports: None Dermatologic History: Reports: None - Infectious Disease History Infectious Disease History: Reports: None - Past Surgical History Head Surgeries/Procedures: Reports: None HEENT Surgical History: Reports: None, Tonsillectomy Cardiovascular Surgical History: Reports: None Respiratory Surgical History: Reports: None GI Surgical History: Reports: None Male Surgical History: Reports: None Endocrine Surgical History: Reports: None Neurological Surgical History: Reports: None Musculoskeletal Surgical History: Reports: ORIF, Other (See Below) Other Musculoskeletal Surgeries/Procedures:: ORIF left leg fx Oncologic Surgical History: Reports: None Dermatological Surgical History: Reports: None Social & Family History - Family History Family Medical History: No Pertinent Family History - Tobacco Use Tobacco Use Status *Q: Never Tobacco User Second Hand Smoke Exposure: No - Caffeine Use Caffeine Use: Reports: None - Recreational Drug Use Recreational Drug Use: No ED ROS GENERAL - Review of Systems Review Of Systems: See Below ED EXAM, GENERAL - Physical Exam Exam: See Below Course - Vital Signs Last Recorded V/S: Last Vital Signs Temp 36.6 C 06/30/21 18:29 Pulse 96 06/30/21 18:29 Resp 18 06/30/21 18:29 BP 129/71 06/30/21 18:29 Pulse Ox 97 06/30/21 18:29 - Orders/Labs/Meds Meds: Medications Discontinued Medications Generic Name Dose Route Start Last Admin Trade Name Kriss PRN Reason Stop Dose Admin Dextrose/Lactated Ringer's 1,000 mls @ 999 mls/hr 06/30/21 16:00 06/30/21 16:03 Dextrose 5%-Lactated Ringers IV 999 mls/hr ASDIRECTED VIVIANA Administration Dextrose/Lactated Ringer's 1,000 mls @ 999 mls/hr 06/30/21 16:45 06/30/21 16:40 Dextrose 5%-Lactated Ringers IV 999 mls/hr ASDIRECTED VIVIANA Administration Ketorolac Tromethamine 15 mg 06/30/21 15:48 06/30/21 16:04 Ketorolac 15 Mg/Ml Sdv IVPUSH 06/30/21 15:49 15 mg ONETIME ONE Administration Ondansetron HCl 4 mg 06/30/21 15:47 06/30/21 16:04 Ondansetron 4 Mg/2 Ml Sdv IVPUSH 06/30/21 15:48 4 mg ONETIME ONE Administration Departure - Departure Time of Disposition: 18:21 Disposition: Home, Self-Care 01 Condition: Fair Clinical Impression: Vomiting, Diarrhea, COVID-19 - Discharge Information *PRESCRIPTION DRUG MONITORING PROGRAM REVIEWED*: No *COPY OF PRESCRIPTION DRUG MONITORING REPORT IN PATIENT TONE: No Prescriptions: Ondansetron [Zofran ODT] 4 mg PO Q6H PRN #8 tab.dis PRN Reason: Nausea/Vomiting Instructions: Food Choices to Help Relieve Diarrhea, Adult, 10 Things You Can Do to Manage Your COVID-19 Symptoms at Home - [facility] [place] (04/17/2021), Vomiting, Adult, Diarrhea, Adult, [id number] Referrals: PCP,None [Primary Care Provider] - Forms: ED Department Discharge Additional Instructions: You were evaluated today on an emergent basis. At this time you were able to tolerate liquids while in the emergency department. We did provide you with fluids and antinausea medication. As discussed it is important that you maintain hydration with Pedialyte, Gatorade, and water. I recommend a bland diet for now until you are able to tolerate more for feeling foods. I recommend that you use Zofran as needed for nausea every 6 hours as prescribed. If you have any bloody diarrhea, inability to tolerate fluids, or have any worsening symptoms I recommend you return to the emergency department. Otherwise please follow-up with primary care physician in 3 to 5 days. As discussed given that you have had symptoms for 2 weeks at this time you are not a candidate for Regeneron. [facility] [address] [place] [id number] [facility] [address] [place] [id number] The patient is informed of any results of their evaluation and diagnostic workup and all questions are answered. They are given discharge instructions and return precautions. The patient is stable for discharge. The patient states they understand and agree with the plan and that they will return if their symptoms get worse or if they have any new concerns. The following information is given to patients seen in the emergency department who are being discharged to home. This information is to outline your options for follow-up care. We provide all patients seen in our emergency department with a follow-up referral. The need for follow-up, as well as the timing and circumstances, are variable depending upon the specifics of your emergency department visit. If you don't have a primary care physician on staff, we will provide you with a referral. We always advise you to contact your personal physician following an emergency department visit to inform them of the circumstance of the visit and for follow-up with them and/or the need for any referrals to a consulting specialist. The emergency department will also refer you to a specialist when appropriate. This referral assures that you have the opportunity for follow-up care with a specialist. All of these measure are taken in an effort to provide you with optimal care, which includes your follow-up. Under all circumstances we always encourage you to contact your private physician who remains a resource for coordinating your care. When calling for follow-up care, please make the office aware that this follow-up is from your recent emergency room visit. If for any reason you are refused follow-up, please contact the Emergency Department at and asked to speak to the emergency department charge nurse. Sepsis Event Note (ED) - Evaluation Sepsis Screening Result: No Definite Risk
== END 2021-06-30 18:30 | disposition home or self-care (01) ==
LOC: MW.ED 15:12
DX: U07.1 COVID-19 (principal); R11.10 Vomiting, unspecified; R19.7 Diarrhea, unspecified; E66.9 Obesity, unspecified; Z68.35 Body mass index [BMI] 35.0-35.9, adult; Z91.09 Other allergy status, other than to drugs and biological substances; Z91.048 Other nonmedicinal substance allergy status
CPT/HCPCS: 96374; 96375; 99283; J1885; J2405; J7121

== ENCOUNTER 2021-10-25 22:34 | Emergency (ER) | payer SELFPAY | END 2021-10-25 23:42 | LOC: MW.ED 22:34 | DX: I10 Essential (primary) hypertension (principal); J45.909 Unspecified asthma, uncomplicated; E66.9 Obesity, unspecified; Z68.34 Body mass index [BMI] 34.0-34.9, adult; Z91.048 Other nonmedicinal substance allergy status | CPT/HCPCS: 93005; 99283-25 ==

== ENCOUNTER 2023-10-27 00:06 | Emergency (ER) | payer MEDICAID | END 2023-10-27 00:40 | LOC: MW.ED 00:06 | DX: R45.851 Suicidal ideations (principal); Z02.89 Encounter for other administrative examinations; E66.9 Obesity, unspecified; Z91.048 Other nonmedicinal substance allergy status; Z68.31 Body mass index [BMI] 31.0-31.9, adult | CPT/HCPCS: 99284; 99285 ==

== ENCOUNTER 2024-12-22 09:19 | Emergency (ER) | payer SELFPAY | END 2024-12-22 10:33 | LOC: MW.ED 09:19 | DX: I10 Essential (primary) hypertension (principal); Z91.018 Allergy to other foods; Z91.048 Other nonmedicinal substance allergy status | CPT/HCPCS: 99282; 99283 ==